=== PATIENT | male | born 1970 | race Caucasian/White ===

== ENCOUNTER 2020-07-16 11:22 | Inpatient (IN) | payer OTHER, MEDICARE ==
[2020-07-16] MEDS ORDERED: NORMAL SALINE 1000 ML 1,000 ML IV ONE ×3 (14:30→16:58)
[2020-07-16] MEDS ORDERED: ONDANSETRON HCL INJ/PF 4 MG/2 ML SDV IV ONE (14:30)
[2020-07-16] MEDS ORDERED: DICYCLOMINE HCL 20 MG TABLET PO ONE (14:30)
--- NOTE | 2020-07-16 14:32 | ER Document Report ---
ED GI/ - General Chief Complaint: Abdominal Problem Stated Complaint: FEVER,CHILLS Time Seen by Provider: 07/16/20 12:18 Mode of Arrival: Ambulatory Information source: Patient Notes: Patient presents complaining of abdominal pain the past week. Patient states the pain is been constant and he has had nausea. Patient reports last bowel movement was yesterday and was normal. Patient has not measured a fever although reports feeling hot and having chills. Patient assumes that he has ngozi d poisoning at this time. - HPI Patient complains to provider of: Abdominal pain, Other - Nausea Onset: Last week Timing/Duration: Worse Quality of pain: Sharp Pain Level: 5 Location: LLQ Associated symptoms: Chills, Loss of appetite, Nausea. denies: Blood in stool, Constipation, Diarrhea, Urinary hesitancy, Urinary frequency, Urinary retention, Urinary urgency, Vomiting Exacerbated by: Movement Relieved by: Denies Similar symptoms previously: No Recently seen / treated by doctor: No - Related Data Allergies/Adverse Reactions: No Known Allergies Allergy (Unverified 07/16/20 12:47) Past Medical History - General Information source: Patient - Social History Smoking Status: Never Smoker Chew tobacco use (# tins/day): No Drug Abuse: None Occupation: None Lives with: Alone Family History: Reviewed & Not Pertinent Patient has homicidal ideation: No GI Medical History: Reports: Other - Achalasia Past Surgical History: Reports: Hx Orthopedic Surgery - Cervical fusion Review of Systems - Review of Systems Constitutional: Chills EENT: No symptoms reported Cardiovascular: No symptoms reported. denies: Chest pain Respiratory: No symptoms reported. denies: Cough, Short of breath Gastrointestinal: Abdominal pain, Nausea, Poor appetite. denies: Diarrhea, Vomiting, Constipation Genitourinary: No symptoms reported. denies: Dysuria, Flank pain Male Genitourinary: No symptoms reported Musculoskeletal: No symptoms reported Skin: No symptoms reported Hematologic/Lymphatic: No symptoms reported Neurological/Psychological: No symptoms reported Physical Exam - Vital signs Vitals: Temp 98.7 F 07/16/20 11:23 - General General appearance: Appears well, Alert In distress: Mild - HEENT Head: Normocephalic, Atraumatic Eyes: Normal Conjunctiva: Normal Nasal: Normal Mouth/Lips: Normal Mucous membranes: Normal Neck: Normal, Supple - Respiratory Respiratory status: No respiratory distress Chest status: Nontender Breath sounds: Normal. No: Rales, Rhonchi, Wheezing Chest palpation: Normal - Cardiovascular Rhythm: Regular Heart sounds: S1 appreciated, S2 appreciated - Abdominal Inspection: Normal Distension: No distension Bowel sounds: Normal Tenderness: Tender - Diffuse tenderness worse to left lower quadrant, Guarding Organomegaly: No organomegaly - Back Back: Normal, Nontender. No: CVA tenderness - Extremities General upper extremity: Normal inspection, Nontender, Normal strength General lower extremity: Normal inspection, Nontender, Normal strength - Neurological Neuro grossly intact: Yes Cognition: Normal [place] Coma Scale Eye Opening: Spontaneous [place] Coma Scale Verbal: Oriented [place] Coma Scale Motor: Obeys Commands [place] Coma Scale Total: 15 - Psychological Associated symptoms: Normal affect, Normal mood - Skin Skin Temperature: Warm Skin Moisture: Dry Skin Color: Normal Course - Re-evaluation Re-evalutation: 07/16/20 15:38 Radiologist called after reviewing patient's imaging, she reports that patient has what appears to be a necrotic mass in his mid abdominal area. 07/16/20 15:57 Call placed for consultation with surgeon, janis bill, states that he will return call shortly. 07/16/20 16:31 Consulted with the surgeon Dr. Jeff regarding patient presentation, he recommends repeating a CT scan to include oral contrast, he states that he will speak with the radiologist and call back with additional instructions. 07/16/20 17:00 Dr. Jeff states that patient needs to have a repeat CT scan with IV and oral contrast. He advises giving patient additional liter of IV fluids as well as maintenance fluid at 150 an hour. Patient should not go to CT scan until it is been 2 hours after he is finished the oral contrast. structures technician SAMPSON advised of Dr. Jeff's instructions. 07/16/20 19:00 Patient updated regarding plan of care, patient denies any needs at this time. - Vital Signs Vital signs: Temp Pulse Resp BP Pulse Ox 98.2 F 88 17 115/71 97 07/17/20 07:08 07/16/20 21:19 07/17/20 05:01 07/17/20 05:00 07/17/20 05:01 - Laboratory Result Diagrams: 07/17/20 05:26 07/17/20 05:26 Laboratory results interpreted by me: 07/16/20 07/16/20 07/16/20 13:00 13:00 13:00 WBC 24.1 H Seg Neuts % (Manual) 84 H Band Neutrophils % 2 L Lymphocytes % (Manual) 3 L Abs Neuts (Manual) 21.0 H Abs Monocytes (Manual) 2.2 H Sodium 135.0 L Chloride 94 L Direct Bilirubin 0.5 H Lipase 21.9 L Urine Protein 30 H Urine Ketones TRACE H Labs- All tests 24 hr 07/16/20 07/16/20 13:00 13:00 WBC 24.1 H RBC 4.74 Hgb 14.8 Hct 42.5 MCV 90 MCH 31.2 MCHC 34.7 RDW 13.0 Plt Count 286 Lymph % (Auto) Not Reportable [place] % (Auto) Not Reportable Eos % (Auto) Not Reportable Baso % (Auto) Not Reportable Absolute Neuts (auto) Not Reportable Absolute Lymphs (auto) Not Reportable Absolute Monos (auto) Not Reportable Absolute Eos (auto) Not Reportable Absolute Basos (auto) Not Reportable Total Counted 100 Seg Neutrophils % Not Reportable Seg Neuts % (Manual) 84 H Band Neutrophils % 2 L Lymphocytes % (Manual) 3 L Atypical Lymphs % 1 Monocytes % (Manual) 9 Eosinophils % (Manual) 0 Basophils % (Manual) 0 Metamyelocytes % 1 Abs Neuts (Manual) 21.0 H Abs Lymphs (Manual) 1.0 Abs Monocytes (Manual) 2.2 H Absolute Eos (Manual) 0.0 Abs Basophils (Manual) 0.0 Toxic Vacuolation PRESENT Platelet Comment ADEQUATE RBC Morph Comment NORMO-CYTIC/CHROMIC Sodium 135.0 L Potassium 3.7 Chloride 94 L Carbon Dioxide 25 Anion Gap 16 BUN 10 Creatinine 1.03 Est GFR ( Amer) > 60 Est GFR (MDRD) Non-Af > 60 Glucose 109 Calcium 9.3 Total Bilirubin 0.9 Direct Bilirubin 0.5 H Neonat Total Bilirubin Not Reportable Neonat Direct Bilirubin Not Reportable Neonat Indirect Bili Not Reportable AST 28 ALT 37 Alkaline Phosphatase 123 Total Protein 7.5 Albumin 4.2 Lipase 21.9 L - Diagnostic Test Radiology reviewed: Image reviewed, Reports reviewed Discharge - Discharge Clinical Impression: Abdominal pain Qualifiers: Abdominal location: lower abdomen, unspecified Qualified Code(s): R10.30 - Lower abdominal pain, unspecified Leukocytosis Qualifiers: Leukocytosis type: unspecified Qualified Code(s): D72.829 - Elevated white blood cell count, unspecified Abdominal mass Qualifiers: Abdominal location: left lower quadrant Qualified Code(s): R19.04 - Left lower quadrant abdominal swelling, mass and lump Condition: Stable Disposition: ADMITTED INPATIENT
[2020-07-16 14:40] LABS: HEMATOCRIT 42.5 % (37.9-51.0); HEMOGLOBIN 14.8 g/dL (13.5-17.0); MEAN CORPUSCULAR HEMOGLOBIN 31.2 pg (27.0-33.4); MEAN CORPUSCULAR HGB CONC 34.7 g/dL (32.0-36.0); MEAN CORPUSCULAR VOLUME 90 fl (80-97); PLATELET COUNT 286 10^3/uL (150-450); RED BLOOD COUNT 4.74 10^6/uL (4.35-5.55); WHITE BLOOD COUNT 24.1 10^3/uL (4.0-10.5)
[2020-07-16 14:48] LABS: ALBUMIN 4.2 g/dL (3.5-5.0); ALKALINE PHOSPHATASE 123 U/L (38-126); ANION GAP 16 (5-19); ASPARTATE AMINO TRANSFERASE 28 U/L (17-59); BILIRUBIN,DIRECT 0.5 mg/dL (0.0-0.4); BILIRUBIN,TOTAL 0.9 mg/dL (0.2-1.3); BLOOD UREA NITROGEN 10 mg/dL (7-20); CALCIUM 9.3 mg/dL (8.4-10.2); CARBON DIOXIDE 25 mmol/L (22-30); CHLORIDE 94 mmol/L (98-107); GLUCOSE 109 mg/dL (75-110); POTASSIUM 3.7 mmol/L (3.6-5.0); TOTAL PROTEIN 7.5 g/dL (6.3-8.2)
[2020-07-16 15:36] LABS: ABSOLUTE MONOCYTES # (MANUAL) 2.2 10^3/uL (0.1-1.4); BAND NEUTROPHILS % (MANUAL) 2 % (3-5); BASOPHILS % (MANUAL) 0 % (0-2); EOSINOPHILS % (MANUAL) 0 % (0-6); LYMPHOCYTES % (MANUAL) 3 % (13-45); METAMYELOCYTES % (MANUAL) 1 % (0-1); MONOCYTES % (MANUAL) 9 % (3-13); SEGMENTED NEUTROPHILS % (MAN) 84 % (42-78); TOTAL CELLS COUNTED 100
[2020-07-16 15:37] LABS: PLATELET COMMENT ADEQUATE; RBC MORPHOLOGY COMMENT NORMO-CYTIC/CHROMIC; TOXIC VACUOLATION PRESENT
[2020-07-16] MEDS ORDERED: PIPERACILLIN/TAZOBACTAM 3.375 GM VIAL IV ONE ×2 (15:39→22:15)
--- NOTE | 2020-07-16 15:48 | RADIOLOGY REPORT (SQ) ---
EXAM DESCRIPTION: CT ABD/PELVIS WITH IV ONLY IMAGES COMPLETED DATE/TIME: 07/16/2020 3:21 pm REASON FOR STUDY: LLQ pain COMPARISON: None. TECHNIQUE: CT scan of the abdomen and pelvis performed using helical scanning technique with dynamic intravenous contrast injection. No oral contrast. Images reviewed with lung, soft tissue, and bone windows. Reconstructed coronal and sagittal MPR images reviewed. Delayed images for evaluation of the urinary system also acquired. All images stored on PACS. All CT scanners at this facility use dose modulation, iterative reconstruction, and/or weight based d osing when appropriate to reduce radiation dose to as low as reasonably achievable (ALARA). [facility]: Dose Right [facility]: CareDose [facility]: Dose Right [facility]: Teradose 4D [facility]: [employer] CONTRAST TYPE AND DOSE: contrast/concentration: Isovue 350.00 mmol/ml; Total Contrast Delivered: 88. 0 ml; Total Saline Delivered: 34.9 ml RENAL FUNCTION: Creatinine- 1.03 BUN=10 RADIATION DOSE: CT Rad equipment meets quality standard of care and radiation dose reduction techniq ues were employed. CTDIvol: NaN - NaN mGy. DLP: 0 mGy-cm.. LIMITATIONS: None. FINDINGS: LOWER CHEST: A large dilated structure in the right posterior mediastinum, lies superior and adjacent to the gastroesophageal junction and adjacent to the right cardiac margin. It contains an [id number]-[id number] level and measures approximately 7- 8.0 cm in diameter. The wall is mildly thick ened. This finding may correlate with the patient's known history of achalasia. LIVER: Normal size. No masses. No dilated ducts. The hepatic and portal veins are patent. SPLEEN: Normal size. No focal lesions. PANCREAS: No masses. No significant calcifications. No adjacent inflammation or peripancreatic fluid collections. Pancreatic duct not dilated. GALLBLADDER: No identified stones by CT criteria. No inflammatory changes to suggest cholecystitis. ADRENAL GLANDS: No significant masses or asymmetry. RIGHT KIDNEY AND URETER: No solid masses. No significant calcifications. No hydronephrosis or hyd roureter. LEFT KIDNEY AND URETER: No solid masses. No significant calcifications. No hydronephrosis or hydr oureter. AORTA AND VESSELS: No aneurysm. No dissection. Renal arteries, SMA, celiac without stenosis. RETROPERITONEUM: No retroperitoneal adenopathy, hemorrhage or masses. BOWEL AND PERITONEAL CAVITY: A large abnormal thick wall appearing fluid collection in the midline t o the left and right lower abdomen with air-fluid levels and small foci of air, coronal images 19-29, series 601. The surrounding mesenteric fat is hazy and ill-defined in appearance may be on the basi s of mesenteric edema/ inflammatory changes. Considerations for this finding includes abscess, with the possibility of a necrotic mass also included in the differential diagnosis. Constipation. Nondistended fluid filled small bowel loops may represent enteritis. APPENDIX: Not visualized. PELVIS: The prostate gland is unremarkable in appearance. Normal bladder. ABDOMINAL WALL: No masses. No hernias. BONES: Slight retrolisthesis of L5 on S1 and degenerative changes. Pectus excavatum deformity of the visualized sternum, normal anatomic variant. OTHER: No other significant finding. IMPRESSION: 1. A large abnormal thick wall appearing fluid collection in the midline to the left an d right lower abdomen as described above which contains air-fluid levels and small foci of air. Cons iderations for this finding includes an abscess, possibility of a necrotic mass, as well as other dangelo ologies. (The results of this examination were discussed with emergency department provider on 020 at 15:38 hours). 2. A large dilated structure in the posterior mediastinum extending to the right of the midline. Th is finding may represent a dilated esophagus correlating with the patient's history of achalasia. 3. Additional findings as above. TECHNICAL DOCUMENTATION: JOB ID: [id number] Quality ID # 436: Final reports with documentation of one or more dose reduction techniques (e.g., Au tomated exposure control, adjustment of the mA and/or kV according to patient size, use of iterative reconstruction technique) 2010 [employer]- All Rights Reserved Reading location - IP/workstation name: [facility]
[2020-07-16] MEDS ORDERED: FENTANYL CITRATE INJ/PF 100 MCG/2 ML AMPUL IV ONE (15:53)
[2020-07-16] MEDS ORDERED: MORPHINE SULFATE 10 MG/ML INJ IV ONE ×3 (17:49→22:48)
--- NOTE | 2020-07-16 21:14 | RADIOLOGY REPORT (SQ) ---
EXAM DESCRIPTION: CT CHEST WITH IV CONTRAST, CT ABDOMEN PELVIS WITH IV CONTRAST COMPLETED DATE/TME: 07/16/2020 00:00 CLINICAL HISTORY: 50 years, Male, CHEST PAIN/EVAL MEDIASTINAL FINDING; left lower quadrant pain COMPARISON: Contrast enhanced CT of the abdomen/pelvis performed the same day. TECHNIQUE: Contrast enhanced CT of the chest, abdomen, and pelvis were acquired after the administration of 80 mL of Omnipaque 350 intravenous contrast. Images stored on PACS. All CT scanners at this facility use dose modulation, iterative reconstruction, and/or weight based dosing when appropriate to reduce radiation dose to as low as reasonably achievable (ALARA). [facility]: Dose Right [facility]: CareDose [facility]: Dose Right [facility]: Teradose 4D [facility]: [employer] LIMITATIONS: None. FINDINGS: Contrast enhanced CT chest: Central airways are patent. Lungs are clear. Mediastinal windows show no significant hilar or mediastinal lymph node enlargement. The esophagus is diffusely dilated and fluid-filled with abrupt transition at the GE junction. Heart shows no suspicious abnormality. Thoracic aorta appears opacify with contrast normally. Pulmonary arterial vasculature shows no suspicious abnormality. Bone windows through the chest reveal no destructive osseous lesions. Contrast enhanced CT of the abdomen/pelvis: Liver, spleen, pancreas, gallbladder, and both adrenal glands appear normal. Both kidneys enhance symmetrically. No hydronephrosis or hydroureter. Hyperdensity is noted about both renal collecting systems, indicating excretion of previously administered intravenous contrast material. The urinary bladder is well distended and shows no suspicious finding. Small and large bowel appear overall normal in caliber. There is a short segment of circumferential wall thickening involving the sigmoid colon. This is likely reactive/has result of immediately adjacent mixed fluid/gas collection located about the lower abdomen. This mixed fluid/gas collection measures 14.5 x 5.3 x 5.8 cm in size, and appears circumferentially thick-walled. Superimposed adjacent inflammatory stranding is also evident. Small bowel is overall normal in caliber. No evidence of bowel obstruction. Vascular structures opacify with contrast normally. No suspicious lymphadenopathy is appreciated. However, there is some degree of inflammatory stranding located about the low pelvis surrounding the large mixed fluid/gas collection. Bone windows show no destructive osseous lesions. IMPRESSION: Contrast enhanced CT of the chest: No acute or suspicious findings within the chest. Dilated/fluid-filled esophagus with abrupt transition at the GE junction, suspicious for achalasia. Contrast enhanced CT of the abdomen/pelvis: Large, thick-walled mixed fluid/gas collection located about the low low abdomen/pelvis. The periphery of this collection approximates the sigmoid colon as well as the cecum. Differential considerations for this finding include a large abscess, possibly as a result of perforated appendicitis or perforated diverticulitis (although no significant diverticula are identified on this examination). Alternatively, this could represent a necrotic mass such as a GIST. However, the presence of adjacent inflammatory stranding favors an infectious process. Superimposed wall thickening about the adjacent sigmoid colon is most likely reactive. TECHNICAL DOCUMENTATION: Quality ID # 436: Final reports with documentation of one or more dose reduction techniques (e.g., Automated exposure control, adjustment of the mA and/or kV according to patient size, use of iterative reconstruction technique) copyright 2011 [employer]- All Rights Reserved
[2020-07-16 21:33] LABS: APPEARANCE,URINE CLEAR; BILIRUBIN,URINE NEGATIVE (NEGATIVE); COLOR,URINE YELLOW; GLUCOSE, URINE NEGATIVE (NEGATIVE); KETONES,URINE TRACE mg/dL (NEGATIVE); LEUKOCYTE ESTERASE,URINE NEGATIVE (NEGATIVE); NITRITE,URINE NEGATIVE (NEGATIVE); PROTEIN,URINE 30 mg/dL (NEGATIVE); URINE SPECIFIC GRAVITY 1.014; UROBILINOGEN,URINE NEGATIVE mg/dL (<2.0)
[2020-07-16] MEDS ORDERED: CEFTRIAXONE INJ 1000 MG VIAL IV ONE (22:00)
--- NOTE | 2020-07-16 22:17 | PDOC H&P ---
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 The symptoms and substance water subsided in the following 2 days to then return more intense in particular the lower abdominal pain and fever. He was able to hold some food and fluids; however the pain is become more intense over the past few days and he presented to the emergency room with above s ymptoms. The patient had stools almost daily, hard without blood or diarrhea. The patient reports a past history of gastrointestinal turns mainly characterized by left-sided cramp-like discomfort. He had a colonoscopy a year ago which was negative. He denies a family history of inflammatory bowel disease or other gastrointestinal conditions. Past Medical History GI Medical History: Reports: Other - Achalasia Past Surgical History Past Surgical History: Reports: Orthopedic Surgery - Cervical fusion Social History Lives with: Alone Smoking Status: Never Smoker Electronic Cigarette use?: No Family History Family History: Reviewed & Not Pertinent Parental Family History Reviewed: Yes - Prostate cancer Children Family History Reviewed: No Sibling(s) Family History Reviewed.: No Medication/Allergy Home Medications: No Home Medications 07/16/20 Allergies/Adverse Reactions: No Known Allergies Allergy (Unverified 07/16/20 12:47) Physical Exam Vital Signs: Temp Pulse Resp BP Pulse Ox 99.0 F 88 16 127/74 H 98 07/16/20 21:19 07/16/20 21:19 07/16/20 21:19 07/16/20 21:19 07/16/20 21:19 Intake & Output 07/15/20 07/16/20 07/17/20 06:59 06:59 06:59 Intake Total 2100 Balance 2100 Weight 77.111 kg General appearance: PRESENT: mild distress, thin Head exam: PRESENT: atraumatic Eye exam: PRESENT: EOMI Mouth exam: PRESENT: moist, neck supple Neck exam: PRESENT: full ROM Respiratory exam: PRESENT: clear to auscultation will Cardiovascular exam: PRESENT: RRR GI/Abdominal exam: PRESENT: distended, hypoactive bowel sounds, tenderness - bilateral lower abdominal pain left more than right with localized peritonitis and grimacing Rectal exam: PRESENT: deferred Extremities exam: PRESENT: full ROM Musculoskeletal exam: PRESENT: full ROM Neurological exam: PRESENT: alert, awake Psychiatric exam: PRESENT: appropriate affect Skin exam: PRESENT: warm Results Laboratory Results: 07/16/20 13:00 07/16/20 13:00 07/16/20 07/16/20 13:00 13:00 WBC 24.1 H RBC 4.74 Hgb 14.8 Hct 42.5 MCV 90 MCH 31.2 MCHC 34.7 RDW 13.0 Plt Count 286 Seg Neutrophils % Not Reportable Sodium 135.0 L Potassium 3.7 Chloride 94 L Carbon Dioxide 25 Anion Gap 16 BUN 10 Creatinine 1.03 Est GFR ( Amer) > 60 Glucose 109 Calcium 9.3 Total Bilirubin 0.9 AST 28 Alkaline Phosphatase 123 Total Protein 7.5 Albumin 4.2 Lipase 21.9 L Impressions: Chest CT 07/16/20 00:00 IMPRESSION: Contrast enhanced CT of the chest: No acute or suspicious findings within the chest. Dilated/fluid-filled esophagus with abrupt transition at the GE junction, suspicious for achalasia. Contrast enhanced CT of the abdomen/pelvis: Large, thick-walled mixed fluid/gas collection located about the low low abdomen/pelvis. The periphery of this collection approximates the sigmoid colon as well as the cecum. Differential considerations for this finding include a large abscess, possibly as a result of perforated appendicitis or perforated diverticulitis (although no significant diverticula are identified on this examination). Alternatively, this could represent a necrotic mass such as a GIST. However, the presence of adjacent inflammatory stranding favors an infectious process. Superimposed wall thickening about the adjacent sigmoid colon is most likely reactive. TECHNICAL DOCUMENTATION: Quality ID # 436: Final reports with documentation of one or more dose reduction techniques (e.g., Automated exposure control, adjustment of the mA and/or kV according to patient size, use of iterative reconstruction technique) copyright 2011 [email or web address]- All Rights Reserved Abdomen/Pelvis CT 07/16/20 14:30 IMPRESSION: 1. A large abnormal thick wall appearing fluid collection in the midline to the left and right lower abdomen as described above which contains air-fluid levels and small foci of air. Considerations for this finding includes an abscess, possibility of a necrotic mass, as well as other etiolog ies. (The results of this examination were discussed with emergency department provider on 07/16/2020 at 15:38 hours). 2. A large dilated structure in the posterior mediastinum extending to the right of the midline. This finding may represent a dilated esophagus correlating with the patient's history of achalasia. 3. Additional findings as above. Assessment & Plan - Diagnosis (1) Abdominal mass Qualifiers: Abdominal location: left lower quadrant Qualified Code(s): R19.04 - Left lower quadrant abdominal swelling, mass and lump Is this a current diagnosis for this admission?: Yes (2) Abdominal pain Qualifiers: Abdominal location: lower abdomen, unspecified Qualified Code(s): R10.30 - Lower abdominal pain, unspecified Is this a current diagnosis for this admission?: Yes (3) Leukocytosis Qualifiers: Leukocytosis type: unspecified Qualified Code(s): D72.829 - Elevated white blood cell count, unspecified Is this a current diagnosis for this admission?: Yes - Time Anticipated Discharge Disposition: when ready Anticipated Discharge Timeframe: not ready yet - Plan Summary Plan Summary: Assessment: 1 week history of lower abdominal pain left more than right proceeded with emesis and high fevers Leukocytosis 24,000 CT scan abdomen pelvis with IV and oral contrast reveals a lobar mid abdominal abscess-like formation of unclear origin; the radiologist cannot intensify sigmoid diverticulosis or the appendix Therefore, the differential diagnosis includes perforated sigmoid diverticulitis versus perforated appendicitis versus necrotic GIST Past medical history significant for bony injuries Colonoscopy done a year ago because of left-sided abdominal pain, negative endings Plan: Admit patient N.p.o. IV fluids Rocephin 2 g every 12 Clindamycin 900 mg q. 8 Consent for bowel resection, laparotomy, possible ostomy tomorrow morning Procedure, risks, benefits, complications, explained to the patient, his questions answered, he decides to proceed COVID-19 test to be done shruthi
[2020-07-16] MEDS ORDERED: NORMAL SALINE 1000 ML 1,000 ML IV PRN (22:55)
[2020-07-16] MEDS ORDERED: ONDANSETRON HCL INJ/PF 4 MG/2 ML SDV IV PRN (22:55)
[2020-07-16] MEDS ORDERED: MORPHINE SULFATE 10 MG/ML INJ IV PRN (22:55)
[2020-07-16] MEDS: FAMOTIDINE INJ/PF 20 MG/2 ML SDV IV SCH ×2 (23:52→23:59)
[2020-07-16] MEDS: CEFTRIAXONE INJ 1000 MG VIAL IM SCH (23:53)
[2020-07-17] MEDS: MORPHINE SULFATE 10 MG/ML INJ IV PRN ×6 (01:41→22:14)
[2020-07-17 05:56] LABS: HEMATOCRIT 36.1 % (37.9-51.0); MEAN CORPUSCULAR HEMOGLOBIN 30.8 pg (27.0-33.4); MEAN CORPUSCULAR HGB CONC 34.4 g/dL (32.0-36.0); MEAN CORPUSCULAR VOLUME 90 fl (80-97); PLATELET COUNT 260 10^3/uL (150-450); RED BLOOD COUNT 4.03 10^6/uL (4.35-5.55); RED CELL DISTRIBUTION WIDTH 13.4 % (11.5-14.0); WHITE BLOOD COUNT 22.9 10^3/uL (4.0-10.5)
[2020-07-17] MEDS ORDERED: ACETAMINOPHEN 1,000 MG/100 ML RTUPB IV ONE ×2 (06:00→11:26)
[2020-07-17 06:08] LABS: ANION GAP 12 (5-19); BLOOD UREA NITROGEN 9 mg/dL (7-20); CARBON DIOXIDE 18 mmol/L (22-30); CHLORIDE 104 mmol/L (98-107); GLUCOSE 105 mg/dL (75-110)
[2020-07-17 06:19] LABS: HEMOGLOBIN 12.4 g/dL (13.5-17.0)
[2020-07-17] MEDS: CLINDAMYCIN 900 MG/D5W RTU 900 MG/50 ML RTUPB IV SCH ×4 (06:21→22:15)
[2020-07-17 06:24] LABS: ABSOLUTE LYMPHOCYTES# (MANUAL) 1.4 10^3/uL (0.5-4.7); ABSOLUTE MONOCYTES # (MANUAL) 2.1 10^3/uL (0.1-1.4); BAND NEUTROPHILS % (MANUAL) 4 % (3-5); BASOPHILS % (MANUAL) 0 % (0-2); EOSINOPHILS % (MANUAL) 0 % (0-6); LYMPHOCYTES % (MANUAL) 6 % (13-45); MONOCYTES % (MANUAL) 9 % (3-13); PLATELET COMMENT ADEQUATE; SEGMENTED NEUTROPHILS % (MAN) 81 % (42-78); TOTAL CELLS COUNTED 100
[2020-07-17 06:25] LABS: RBC MORPHOLOGY COMMENT NORMO-CYTIC/CHROMIC
[2020-07-17] MEDS ORDERED: MORPHINE SULFATE 10 MG/ML INJ ONE (07:29)
[2020-07-17] MEDS ORDERED: FENTANYL CITRATE INJ/PF 250 MCG/5 ML AMPULE ONE (07:29)
[2020-07-17] MEDS ORDERED: PROPOFOL INJ 200 MG/20 ML VIAL IV ONE (07:29)
[2020-07-17] MEDS ORDERED: MIDAZOLAM 2 MG/2 ML INJ ONE (07:29)
[2020-07-17] MEDS ORDERED: BUPIVACAINE HCL 0.5%-EPI 1:200000 INJ/PF 30 ML VIAL ONE ×2 (07:35→08:16)
[2020-07-17] MEDS ORDERED: FENTANYL CITRATE INJ/PF 100 MCG/2 ML AMPUL ONE (09:01)
[2020-07-17] MEDS ORDERED: DIPHENHYDRAMINE HCL 50 MG/ML VIAL IV PRN (09:53)
[2020-07-17] MEDS ORDERED: FENTANYL CITRATE INJ/PF 100 MCG/2 ML AMPUL IV PRN (09:53)
[2020-07-17] MEDS ORDERED: MORPHINE SULFATE 10 MG/ML INJ IV PRN (09:53)
[2020-07-17] MEDS ORDERED: MEPERIDINE HCL/PF INJ 25 MG/1 ML DISP.SYRIN IV PRN (09:53)
--- NOTE | 2020-07-17 10:25 | Operative Report ---
Operative Report DATE OF SURGERY: 07/17/20 PREOPERATIVE DIAGNOSIS: Intra-abdominal abscess, leukocytosis POSTOPERATIVE DIAGNOSIS: Intra-abdominal abscess, leukocytosis, gangrenous perforated acute appendicitis OPERATION: Exploratory laparotomy, ileocecectomy SURGEON: REFUGIO GONZALEZ 1ST [employer] ATTENDANT: URBAN ARROYO ANESTHESIA: GA - Last 60 mL's of half percent Marcaine with epinephrine TISSUE REMOVED OR ALTERED: Ileocecectomy specimen with gangrenous ruptured appendix COMPLICATIONS: None ESTIMATED BLOOD LOSS: 50 mL's INTRAOPERATIVE FINDINGS: Large midline interloop abscess with ruptured gangrenous acute appendicitis PROCEDURE: Procedure was done in the operating room, the patient was placed in a supine position, general esthesia induced by endotracheal intubation by the anesthesiologist, nasogastric tube was inserted, a Dozier catheter was inserted, the abdomen was prepped and draped in usual fashion. A midline incision was made according to the presurgical markings, the linea alba was divided with Bovie the peritoneal cavity was entered. The small bowel was eviscerated and ran from the ligament of Treitz down to to the ileocecal valve and backward. Several small bowel loops belonging to the jejunum and ileum as well as the sigmoid colon were found to be plastered together. As these loops of bowel where by finger, large amount of foul-smelling pus was obtained this was sent for aerobic anaerobic culture and Gram stain fully aspirated and removed from the peritoneal cavity.. Further examination of the abdomen revealed an inflamed gangrenous, ruptured acute appendicitis, the appendix was laying on top of the retroperitoneum along the midline covered by loops of small bowel and sigmoid colon. The remaining portion of the abdominal cavity was evaluated. The colon was then identified starting from the cecum and was done in a proximal to distal fashion with identification of all segments, right colon, transverse colon, left colon, sigmoid colon, and proximal rectum. No other lesions or pathologies were identified. Due to the necrosis of the appendix down to its base and involvement of portion of the cecal wall, a decision was made to perform an ileocecectomy. Following the laparotomy, the cecum and right colon were elevated off the retroperitoneum with Bovie and LigaSure up to the liver flexure. Dissection was then continued more proximally to the cecum and this was fully elevated from the retroperitoneum. Similarly, the terminal ileum was elevated from the retroperitoneum by dividing the mesentery with LigaSure. Once this was accomplished, bowel clamps were applied on the terminal ileum about 15 cm pr oximal to the ileocecal valve and on the right colon, 10 cm distal to the cecum. The terminal ileum and the cecum were divided with CHARISSE staplers with blue load, the mesentery of the small bowel and cecum was then divided with LigaSure and the specimen was removed from the surgical field and sent to pathology. The proximal and distal ends of the bowel were placed [id number] and kept in position with interrupted 2-0 silk Lembert sutures placed on the antimesenteric border. The antimesenteric corner of the staple line of each end was opened with Bovie, a 55 mm long CHARISSE stapler with blue load was inserted and fired to create an enterocolostomy, the stapler was opened and removed. The anastomosis was found to be intact. The large enterotomy was temporarily closed with Allis clamps and then with a 60 mm TA stapler with blue load. The TA staple line was reinforced with interrupted Lembert 2-0 silk sutures. The mesenteric defect of the ileocecectomy was closed with running locking 2-0 silk suture. The bowel was replaced within the peritoneal cavity, the anastomosis was inspected and found to be satisfactory, the peritoneal cavity was irrigated with normal saline until clear,approximately 6 L, the linea alba was closed with running #1 looped PDS suture while the bowel was spared with a rubber bowel protector. The skin was loosely approximated with a few perry. The open skin edges and subcutaneous tissue were packed with 50% strength Betadine soaked 4 x 4's, ABDs, tape, and an abdominal binder. The patient tolerated procedure well, extubated, and transferred to the recovery room in satisfactory conditions.
[2020-07-17] MEDS ORDERED: PHARMACY COMMUNICATION ORDER MC NR (10:30)
[2020-07-17] MEDS ORDERED: KETOROLAC TROMETHAMINE INJ/PF 30 MG/1 ML SDV IV SCH (10:30)
[2020-07-17] MEDS ORDERED: ONDANSETRON HCL INJ/PF 4 MG/2 ML SDV ONE ×2 (10:46→14:31)
[2020-07-17] MEDS: FENTANYL CITRATE INJ/PF 100 MCG/2 ML AMPUL ONE ×2 (10:47→10:52)
[2020-07-17] MEDS ORDERED: PROMETHAZINE HCL INJ 25 MG/1 ML VIAL ONE (11:07)
[2020-07-17] MEDS: PROMETHAZINE HCL INJ 25 MG/1 ML VIAL IV PRN ×3 (11:08→11:20)
[2020-07-17] MEDS ORDERED: CEFTRIAXONE 2 GM/D5W RTU 2 GM/50 ML RTUPB IV SCH (13:00)
[2020-07-17] MEDS ORDERED: DEXAMETHASONE SOD PHOSPHATE INJ 4 MG/1 ML VIAL ONE (14:31)
[2020-07-17] MEDS ORDERED: SUCCINYLCHOLINE CHLORIDE INJ 200 MG/10 ML VIAL ONE (14:31)
[2020-07-17] MEDS ORDERED: NEOSTIGMINE METHYLSULFATE 10 MG/10 ML VIAL ONE (14:31)
[2020-07-17] MEDS ORDERED: ROCURONIUM BROMIDE INJ 50 MG/5 ML VIAL IV ONE (14:31)
[2020-07-17] MEDS ORDERED: PHENYLEPHRINE HCL INJ/PF 10 MG/1 ML SDV ONE (14:31)
[2020-07-17] MEDS ORDERED: LIDOCAINE 2% INJ-PF (20 MG/ML) 2 ML AMPUL ONE (14:31)
[2020-07-17] MEDS ORDERED: GLYCOPYRROLATE 1 MG/5 ML VIAL ONE (14:31)
[2020-07-17] MEDS: CEFTRIAXONE 2 GM/D5W RTU 2 GM/50 ML RTUPB IV SCH ×2 (15:46→21:35)
[2020-07-17] MEDS: NORMAL SALINE 1000 ML 1,000 ML IV PRN (20:05)
[2020-07-17] MEDS: ACETAMINOPHEN 1,000 MG/100 ML RTUPB IV SCH (20:06)
[2020-07-17] MEDS: FAMOTIDINE INJ/PF 20 MG/2 ML SDV IV SCH ×2 (21:26→21:35)
[2020-07-17] MEDS: CEFTRIAXONE INJ 1000 MG VIAL IM SCH (21:27)
[2020-07-18] MEDS: MORPHINE SULFATE 10 MG/ML INJ IV PRN ×4 (00:16→16:28)
[2020-07-18] MEDS: ACETAMINOPHEN 1,000 MG/100 ML RTUPB IV SCH ×4 (02:00→21:05)
[2020-07-18] MEDS: CLINDAMYCIN 900 MG/D5W RTU 900 MG/50 ML RTUPB IV SCH ×3 (05:14→21:12)
[2020-07-18] MEDS ORDERED: KETOROLAC TROMETHAMINE INJ/PF 30 MG/1 ML SDV IV PRN (05:30)
[2020-07-18 06:09] LABS: ABSOLUTE BASOPHILS # (AUTO) 0.1 10^3/uL (0.0-0.2); ABSOLUTE LYMPHOCYTES (AUTO) 1.1 10^3/uL (0.5-4.7); ABSOLUTE MONOCYTES (AUTO) 1.3 10^3/uL (0.1-1.4); ABSOLUTE NEUT (AUTO) 17.4 10^3/uL (1.7-8.2); BASOPHILS % (AUTO) 0.4 % (0-2); EOSINOPHILS % (AUTO) 0.1 % (0-6); HEMATOCRIT 36.5 % (37.9-51.0); HEMOGLOBIN 12.4 g/dL (13.5-17.0); LYMPHOCYTES % (AUTO) 5.5 % (13-45); MEAN CORPUSCULAR HEMOGLOBIN 30.6 pg (27.0-33.4); MEAN CORPUSCULAR VOLUME 90 fl (80-97); MONOCYTES % (AUTO) 6.6 % (3-13); PLATELET COUNT 306 10^3/uL (150-450); RED BLOOD COUNT 4.06 10^6/uL (4.35-5.55); RED CELL DISTRIBUTION WIDTH 13.4 % (11.5-14.0); SEGMENTED NEUTROPHILS % (AUTO) 87.4 % (42-78); TOTAL CELLS COUNTED % (AUTO) 100 %; WHITE BLOOD COUNT 19.9 10^3/uL (4.0-10.5)
[2020-07-18 06:18] LABS: ANION GAP 8 (5-19); BLOOD UREA NITROGEN 8 mg/dL (7-20); CALCIUM 8.1 mg/dL (8.4-10.2); CARBON DIOXIDE 24 mmol/L (22-30); CHLORIDE 103 mmol/L (98-107); GLUCOSE 108 mg/dL (75-110); POTASSIUM 4.2 mmol/L (3.6-5.0)
[2020-07-18] MEDS: CEFTRIAXONE 2 GM/D5W RTU 2 GM/50 ML RTUPB IV SCH ×2 (09:34→21:12)
[2020-07-18] MEDS: ENOXAPARIN SODIUM INJ 40 MG/0.4 ML DISP.SYRIN SUBCUT SCH ×2 (09:36→13:13)
[2020-07-18] MEDS: FAMOTIDINE INJ/PF 20 MG/2 ML SDV IV SCH ×2 (10:00→21:05)
[2020-07-18] MEDS: KETOROLAC TROMETHAMINE INJ/PF 30 MG/1 ML SDV IV PRN ×3 (10:20→22:39)
--- NOTE | 2020-07-18 17:24 | PDOC PROGRESS REPORT ---
Subjective Progress Note for:: 07/18/20 Reason For Visit: INTRA ABDOMINAL ABSCESS, LEUKOCYTOSIS Physical Exam Vital Signs: Temp Pulse Resp BP Pulse Ox 97.9 F 69 16 108/50 L 97 07/18/20 15:11 07/18/20 15:11 07/18/20 15:11 07/18/20 15:11 07/18/20 16:00 Pulse Oximeter Continuous Start: 07/16/20 23:23 Freq: RTQ4 Status: Active Protocol: Document 07/18/20 16:00 [facility] (Rec: 07/18/20 16:24 [facility] [id number]) Pulse Oximetry Assessment Oxygen Saturation (92-100) 97 Oxygen Delivery Method Room Air Fraction of Inspired Oxygen (FIO2) 21 Equipment Usage Equipment in Use Continuous SpO2 Machine # 5 Intake & Output 07/17/20 07/18/20 07/19/20 06:59 06:59 06:59 Intake Total 3350 15309 150 Output Total 2009 Balance 3350 8390 150 Weight 77.111 kg 77.1 kg Results Laboratory Results: 07/18/20 05:06 07/18/20 05:06 07/18/20 07/18/20 05:06 05:06 WBC 19.9 H RBC 4.06 L Hgb 12.4 L Hct 36.5 L MCV 90 MCH 30.6 MCHC 34.0 RDW 13.4 Plt Count 306 Seg Neutrophils % 87.4 H Sodium 134.8 L Potassium 4.2 Chloride 103 Carbon Dioxide 24 Anion Gap 8 BUN 8 Creatinine 0.82 Est GFR ( Amer) > 60 Glucose 108 Calcium 8.1 L 07/17/20 08:37 Peritoneal Gram Stain - Final 07/17/20 08:37 Peritoneal Gram Stain - Final Impressions: Chest CT 07/16/20 00:00 IMPRESSION: Contrast enhanced CT of the chest: No acute or suspicious findings within the chest. Dilated/fluid-filled esophagus with abrupt transition at the GE junction, suspicious for achalasia. Contrast enhanced CT of the abdomen/pelvis: Large, thick-walled mixed fluid/gas collection located about the low low abdomen/pelvis. The periphery of this collection approximates the sigmoid colon as well as the cecum. Differential considerations for this finding include a large abscess, possibly as a result of perforated appendicitis or perforated diverticulitis (although no significant diverticula are identified on this examination). Alternatively, this could represent a necrotic mass such as a GIST. However, the presence of adjacent inflammatory stranding favors an infectious process. Superimposed wall thickening about the adjacent sigmoid colon is most likely reactive. TECHNICAL DOCUMENTATION: Quality ID # [id number]: Final reports with documentation of one or more dose reduction techniques (e.g., Automated exposure control, adjustment of the mA and/or kV according to patient size, use of iterative reconstruction technique) copyright 2011 [employer]- All Rights Reserved Abdomen/Pelvis CT 07/16/20 14:30 IMPRESSION: 1. A large abnormal thick wall appearing fluid collection in the midline to the left and right lower abdomen as described above which contains air-fluid levels and small foci of air. Considerations for this finding includes an abscess, possibility of a necrotic mass, as well as other etiologies. (The results of this examination were discussed with emergency department provider on 07/16/2020 at 15:38 hours). 2. A large dilated structure in the posterior mediastinum extending to the right of the midline. This finding may represent a dilated esophagus correlating with the patient's history of achalasia. 3. Additional findings as above. Assessment & Plan - Time Anticipated Discharge Disposition: Unknown Anticipated Discharge Timeframe: unknown - Plan Summary Plan Summary: 50-year-old male status post laparotomy with ileocecectomy for perforated appendicitis with abscess. The patient is doing reasonably well today. He denies any flatus. I have changed his midline abdominal wound. It appears clean, without signs of infection. His DONNA drains are productive of serosanguineous fluid. I encouraged the patient to get out of bed and ambulate. He should also use his incentive spirometer 10 times every hour, while awake. Awaiting bowel function. Plan to remove NG and advance diet once he begins pas sing flatus. Discontinue Dozier today.
[2020-07-18] MEDS: NORMAL SALINE 1000 ML 1,000 ML IV PRN (21:11)
[2020-07-19] MEDS: ACETAMINOPHEN 1,000 MG/100 ML RTUPB IV SCH ×4 (02:29→21:35)
[2020-07-19] MEDS: MORPHINE SULFATE 10 MG/ML INJ IV PRN ×4 (02:30→21:38)
[2020-07-19] MEDS: CLINDAMYCIN 900 MG/D5W RTU 900 MG/50 ML RTUPB IV SCH ×3 (05:44→22:50)
[2020-07-19] MEDS: NORMAL SALINE 1000 ML 1,000 ML IV PRN ×2 (05:44→17:40)
[2020-07-19 07:19] LABS: ABSOLUTE BASOPHILS # (AUTO) 0.1 10^3/uL (0.0-0.2); ABSOLUTE EOSINOPHILS # (AUTO) 0.1 10^3/uL (0.0-0.6); ABSOLUTE LYMPHOCYTES (AUTO) 1.1 10^3/uL (0.5-4.7); ABSOLUTE NEUT (AUTO) 15.2 10^3/uL (1.7-8.2); BASOPHILS % (AUTO) 0.5 % (0-2); EOSINOPHILS % (AUTO) 0.6 % (0-6); HEMATOCRIT 33.3 % (37.9-51.0); HEMOGLOBIN 11.1 g/dL (13.5-17.0); LYMPHOCYTES % (AUTO) 6.2 % (13-45); MEAN CORPUSCULAR HEMOGLOBIN 30.3 pg (27.0-33.4); MEAN CORPUSCULAR HGB CONC 33.4 g/dL (32.0-36.0); MEAN CORPUSCULAR VOLUME 91 fl (80-97); MONOCYTES % (AUTO) 5.9 % (3-13); PLATELET COUNT 298 10^3/uL (150-450); RED BLOOD COUNT 3.67 10^6/uL (4.35-5.55); RED CELL DISTRIBUTION WIDTH 14.2 % (11.5-14.0); SEGMENTED NEUTROPHILS % (AUTO) 86.8 % (42-78); TOTAL CELLS COUNTED % (AUTO) 100 %; WHITE BLOOD COUNT 17.5 10^3/uL (4.0-10.5)
[2020-07-19 07:27] LABS: ANION GAP 8 (5-19); BLOOD UREA NITROGEN 10 mg/dL (7-20); CALCIUM 7.8 mg/dL (8.4-10.2); CARBON DIOXIDE 25 mmol/L (22-30); CHLORIDE 105 mmol/L (98-107); GLUCOSE 90 mg/dL (75-110); POTASSIUM 4.2 mmol/L (3.6-5.0)
[2020-07-19] MEDS: ENOXAPARIN SODIUM INJ 40 MG/0.4 ML DISP.SYRIN SUBCUT SCH (09:45)
[2020-07-19] MEDS: FAMOTIDINE INJ/PF 20 MG/2 ML SDV IV SCH ×2 (09:46→21:39)
--- NOTE | 2020-07-19 10:04 | PDOC PROGRESS REPORT ---
Subjective Progress Note for:: 07/19/20 Subjective:: No complaints Reason For Visit: INTRA ABDOMINAL ABSCESS, LEUKOCYTOSIS Physical Exam Vital Signs: Temp Pulse Resp BP Pulse Ox 98.3 F 72 16 118/79 100 07/19/20 07:15 07/19/20 07:15 07/19/20 07:15 07/19/20 07:15 07/19/20 07:15 Pulse Oximeter Continuous Start: 07/16/20 23:23 Freq: RTQ4 Status: Complete Protocol: Document 07/19/20 04:03 [facility] (Rec: 07/19/20 04:04 [facility] [id number]) Pulse Oximetry Assessment Oxygen Saturation (92-100) 99 Oxygen Delivery Method Room Air Fraction of Inspired Oxygen (FIO2) 21 Equipment Usage Equipment in Use Continuous SpO2 Machine # 5 Intake & Output 07/18/20 07/19/20 07/20/20 06:59 06:59 06:59 Intake Total 24850 2600 50 Output Total 2009 Balance 8390 2575 50 Weight 77.1 kg 77.2 kg General appearance: PRESENT: no acute distress Respiratory exam: PRESENT: clear to auscultation will Cardiovascular exam: PRESENT: RRR GI/Abdominal exam: PRESENT: soft, other - Incision granulating, clean, no drainage, no odor, no erythema; no bowel sounds Results Laboratory Results: 07/19/20 05:39 07/19/20 05:39 07/19/20 07/19/20 05:39 05:39 WBC 17.5 H RBC 3.67 L Hgb 11.1 L Hct 33.3 L MCV 91 MCH 30.3 MCHC 33.4 RDW 14.2 H Plt Count 298 Seg Neutrophils % 86.8 H Sodium 137.5 Potassium 4.2 Chloride 105 Carbon Dioxide 25 Anion Gap 8 BUN 10 Creatinine 0.86 Est GFR ( Amer) > 60 Glucose 90 Calcium 7.8 L 07/17/20 08:37 Peritoneal Gram Stain - Final 07/17/20 08:37 Peritoneal Wound Culture - Final Escherichia Coli Group C Beta Streptococcus Anaerococcus (Peptostrep) Sp. 07/17/20 08:37 Peritoneal Gram Stain - Final 07/17/20 08:37 Peritoneal Wound Culture - Final Escherichia Coli Group C Beta Streptococcus Anaerococcus (Peptostrep) Sp. Impressions: Chest CT 07/16/20 00:00 IMPRESSION: Contrast enhanced CT of the chest: No acute or suspicious findings within the chest. Dilated/fluid-filled esophagus with abrupt transition at the GE junction, suspicious for achalasia. Contrast enhanced CT of the abdomen/pelvis: Large, thick-walled mixed fluid/gas collection located about the low low abdomen/pelvis. The periphery of this collection approximates the sigmoid colon as well as the cecum. Differential considerations for this finding include a large abscess, possibly as a result of perforated appendicitis or perforated diverticulitis (although no significant diverticula are identified on this examination). Alternatively, this could represent a necrotic mass such as a GIST. However, the presence of adjacent inflammatory stranding favors an infectious process. Superimposed wall thickening about the adjacent sigmoid colon is most likely reactive. TECHNICAL DOCUMENTATION: Quality ID # [id number]: Final reports with documentation of one or more dose reduction techniques (e.g., Automated exposure control, adjustment of the mA and/or kV according to patient size, use of iterative reconstruction technique) copyright 2011 [employer]- All Rights Reserved Abdomen/Pelvis CT 07/16/20 14:30 IMPRESSION: 1. A large abnormal thick wall appearing fluid collection in the midline to the left and right lower abdomen as described above which contains air-fluid levels and small foci of air. Considerations for this finding includes an abscess, possibility of a necrotic mass, as well as other etiologies. (The results of this examination were discussed with emergency department provider on 07/16/2020 at 15:38 hours). 2. A large dilated structure in the posterior mediastinum extending to the right of the midline. This finding may represent a dilated esophagus correlating with the patient's history of achalasia. 3. Additional findings as above. Assessment & Plan - Diagnosis (1) Abdominal mass Qualifiers: Abdominal location: left lower quadrant Qualified Code(s): R19.04 - Left lower quadrant abdominal swelling, mass and lump Is this a current diagnosis for this admission?: Yes (2) Abdominal pain Qualifiers: Abdominal location: lower abdomen, unspecified Qualified Code(s): R10.30 - Lower abdominal pain, unspecified Is this a current diagnosis for this admission?: Yes (3) Leukocytosis Qualifiers: Leukocytosis type: unspecified Qualified Code(s): D72.829 - Elevated white blood cell count, unspecified Is this a current diagnosis for this admission?: Yes - Time Anticipated Discharge Disposition: Home, Self Care Anticipated Discharge Timeframe: Bowel function returns - Plan Summary Plan Summary: Assessment: Postoperative day #2 after laparotomy, ileocecectomy, for perforated gangrenous appendicitis with interloop abscess Vital signs stable Urine output Minimal Nikolas intra-abdominal drain output White blood cell count 17,000, decreasing since admission Incision granulating, no erythema, abdomen soft Plan: Continue p.o. Continue NG tube Continue IV fluids Continue IV antibiotics Once the patient presents with flatus, thoracic acid tube can be removed and his diet can be advanced Abdominal wound to undergo normal saline wet-to-dry dressing changes every 12 hours
[2020-07-19] MEDS: CEFTRIAXONE 2 GM/D5W RTU 2 GM/50 ML RTUPB IV SCH ×2 (10:10→22:14)
[2020-07-19] MEDS: KETOROLAC TROMETHAMINE INJ/PF 30 MG/1 ML SDV IV PRN ×2 (12:50→18:52)
[2020-07-20] MEDS: MORPHINE SULFATE 10 MG/ML INJ IV PRN ×2 (02:49→10:22)
[2020-07-20] MEDS: ACETAMINOPHEN 1,000 MG/100 ML RTUPB IV SCH ×3 (02:50→16:06)
[2020-07-20] MEDS: NORMAL SALINE 1000 ML 1,000 ML IV PRN (06:21)
[2020-07-20] MEDS: CLINDAMYCIN 900 MG/D5W RTU 900 MG/50 ML RTUPB IV SCH ×3 (06:21→22:09)
[2020-07-20] MEDS: KETOROLAC TROMETHAMINE INJ/PF 30 MG/1 ML SDV IV PRN ×3 (06:21→22:09)
[2020-07-20 06:58] LABS: ABSOLUTE BASOPHILS # (AUTO) 0.1 10^3/uL (0.0-0.2); ABSOLUTE EOSINOPHILS # (AUTO) 0.3 10^3/uL (0.0-0.6); ABSOLUTE MONOCYTES (AUTO) 0.8 10^3/uL (0.1-1.4); ABSOLUTE NEUT (AUTO) 12.3 10^3/uL (1.7-8.2); BASOPHILS % (AUTO) 0.8 % (0-2); EOSINOPHILS % (AUTO) 1.8 % (0-6); HEMOGLOBIN 11.7 g/dL (13.5-17.0); LYMPHOCYTES % (AUTO) 7.2 % (13-45); MEAN CORPUSCULAR HEMOGLOBIN 30.8 pg (27.0-33.4); MEAN CORPUSCULAR HGB CONC 34.3 g/dL (32.0-36.0); MEAN CORPUSCULAR VOLUME 90 fl (80-97); MONOCYTES % (AUTO) 5.3 % (3-13); PLATELET COUNT 372 10^3/uL (150-450); RED BLOOD COUNT 3.79 10^6/uL (4.35-5.55); RED CELL DISTRIBUTION WIDTH 13.8 % (11.5-14.0); SEGMENTED NEUTROPHILS % (AUTO) 84.9 % (42-78); TOTAL CELLS COUNTED % (AUTO) 100 %; WHITE BLOOD COUNT 14.5 10^3/uL (4.0-10.5)
[2020-07-20 07:25] LABS: ANION GAP 12 (5-19); BLOOD UREA NITROGEN 9 mg/dL (7-20); CALCIUM 7.9 mg/dL (8.4-10.2); CARBON DIOXIDE 19 mmol/L (22-30); CHLORIDE 107 mmol/L (98-107); GLUCOSE 90 mg/dL (75-110)
[2020-07-20] MEDS: CEFTRIAXONE 2 GM/D5W RTU 2 GM/50 ML RTUPB IV SCH ×2 (10:18→21:35)
[2020-07-20] MEDS: FAMOTIDINE INJ/PF 20 MG/2 ML SDV IV SCH ×2 (10:18→21:33)
[2020-07-20] MEDS: ENOXAPARIN SODIUM INJ 40 MG/0.4 ML DISP.SYRIN SUBCUT SCH (10:18)
--- NOTE | 2020-07-20 12:26 | PDOC PROGRESS REPORT ---
Subjective Progress Note for:: 07/20/20 Subjective:: Patient doing well no flatus Reason For Visit: INTRA ABDOMINAL ABSCESS, LEUKOCYTOSIS Physical Exam Vital Signs: Temp Pulse Resp BP Pulse Ox 98.1 F 67 12 108/66 96 07/20/20 11:27 07/20/20 11:27 07/20/20 11:27 07/20/20 11:27 07/20/20 11:27 Pulse Oximeter Continuous Start: 07/16/20 23:23 Freq: RTQ4 Status: Complete Protocol: Document 07/19/20 10:45 [facility] [place] (Rec: 07/19/20 10:45 [facility] [place] [id number]) Pulse Oximetry Assessment Equipment Usage Equipment Discontinued Continuous SpO2 Machine # 5 Intake & Output 07/19/20 07/20/20 07/21/20 06:59 06:59 06:59 Intake Total 2600 2650 200 Output Total 25 7 Balance 2575 2643 200 Weight 77.2 kg 77.2 kg General appearance: PRESENT: no acute distress Respiratory exam: PRESENT: clear to auscultation will Cardiovascular exam: PRESENT: RRR GI/Abdominal exam: PRESENT: hypoactive bowel sounds, soft, other - Midline incision = partially open, granulating, fascia intact, no drainage, odor, or erythema Results Laboratory Results: 07/20/20 06:40 07/20/20 06:40 07/20/20 07/20/20 06:40 06:40 WBC 14.5 H RBC 3.79 L Hgb 11.7 L Hct 34.0 L MCV 90 MCH 30.8 MCHC 34.3 RDW 13.8 Plt Count 372 Seg Neutrophils % 84.9 H Sodium 137.6 Potassium 4.0 Chloride 107 Carbon Dioxide 19 L Anion Gap 12 BUN 9 Creatinine 0.71 Est GFR ( Amer) > 60 Glucose 90 Calcium 7.9 L Impressions: Chest CT 07/16/20 00:00 IMPRESSION: Contrast enhanced CT of the chest: No acute or suspicious findings within the chest. Dilated/fluid-filled esophagus with abrupt transition at the GE junction, suspicious for achalasia. Contrast enhanced CT of the abdomen/pelvis: Large, thick-walled mixed fluid/gas collection located about the low low abdomen/pelvis. The periphery of this collection approximates the sigmoid colon as well as the cecum. Differential considerations for this finding include a large abscess, possibly as a result of perforated appendicitis or perforated diverticulitis (although no significant diverticula are identified on this examination). Alternatively, this could represent a necrotic mass such as a GIST. However, the presence of adjacent inflammatory stranding favors an infectious process. Superimposed wall thickening about the adjacent sigmoid colon is most likely reactive. TECHNICAL DOCUMENTATION: Quality ID # [id number]: Final reports with documentation of one or more dose reduction techniques (e.g., Automated exposure control, adjustment of the mA and/or kV according to patient size, use of iterative reconstruction technique) copyright 2011 [employer]- All Rights Reserved Abdomen/Pelvis CT 07/16/20 14:30 IMPRESSION: 1. A large abnormal thick wall appearing fluid collection in the midline to the left and right lower abdomen as described above which contains air-fluid levels and small foci of air. Considerations for this finding includes an abscess, possibility of a necrotic mass, as well as other etiologies. (The results of this examination were discussed with emergency department provider on 07/16/2020 at 15:38 hours). 2. A large dilated structure in the posterior mediastinum extending to the right of the midline. This finding may represent a dilated esophagus correlating with the patient's history of achalasia. 3. Additional findings as above. Assessment & Plan - Diagnosis (1) Acute gangrenous appendicitis with perforation and peritonitis Is this a current diagnosis for this admission?: Yes (2) Abdominal pain Qualifiers: Abdominal location: lower abdomen, unspecified Qualified Code(s): R10.30 - Lower abdominal pain, unspecified Is this a current diagnosis for this admission?: Yes (3) Leukocytosis Qualifiers: Leukocytosis type: unspecified Qualified Code(s): D72.829 - Elevated white blood cell count, unspecified Is this a current diagnosis for this admission?: Yes - Time Anticipated Discharge Disposition: Home, Self Care Anticipated Discharge Timeframe: When bowel function returns - Plan Summary Plan Summary: Assessment: Postoperative day #4 after laparotomy ileocecectomy drainage of intra-abdominal abscess for perforated gangrenous appendicitis Vital signs stable, patient afebrile Abdomen soft, abdominal incision granulating well healing Nikolas drain output scant Nasogastric tube output scant White blood cell count 14.5 Plan: Clamp NG tube, if tolerated after 4 hours remove NG tube and start ice chips Continue IV fluids 125 mL/h Continue IV antibiotics Discontinue narcotics
[2020-07-21] MEDS: NORMAL SALINE 1000 ML 1,000 ML IV PRN ×3 (01:01→20:21)
[2020-07-21] MEDS: KETOROLAC TROMETHAMINE INJ/PF 30 MG/1 ML SDV IV PRN ×4 (04:21→23:05)
[2020-07-21] MEDS: CLINDAMYCIN 900 MG/D5W RTU 900 MG/50 ML RTUPB IV SCH ×3 (05:46→21:59)
[2020-07-21 06:30] LABS: ABSOLUTE BASOPHILS # (AUTO) 0.1 10^3/uL (0.0-0.2); ABSOLUTE EOSINOPHILS # (AUTO) 0.2 10^3/uL (0.0-0.6); ABSOLUTE MONOCYTES (AUTO) 0.8 10^3/uL (0.1-1.4); ABSOLUTE NEUT (AUTO) 11.5 10^3/uL (1.7-8.2); BASOPHILS % (AUTO) 0.5 % (0-2); EOSINOPHILS % (AUTO) 1.3 % (0-6); HEMATOCRIT 36.9 % (37.9-51.0); HEMOGLOBIN 12.5 g/dL (13.5-17.0); LYMPHOCYTES % (AUTO) 7.5 % (13-45); MEAN CORPUSCULAR HEMOGLOBIN 30.4 pg (27.0-33.4); MEAN CORPUSCULAR HGB CONC 33.8 g/dL (32.0-36.0); MEAN CORPUSCULAR VOLUME 90 fl (80-97); MONOCYTES % (AUTO) 6.2 % (3-13); PLATELET COUNT 519 10^3/uL (150-450); RED CELL DISTRIBUTION WIDTH 13.9 % (11.5-14.0); SEGMENTED NEUTROPHILS % (AUTO) 84.5 % (42-78); TOTAL CELLS COUNTED % (AUTO) 100 %; WHITE BLOOD COUNT 13.6 10^3/uL (4.0-10.5)
[2020-07-21 06:58] LABS: ANION GAP 15 (5-19); BLOOD UREA NITROGEN 9 mg/dL (7-20); CALCIUM 8.4 mg/dL (8.4-10.2); CARBON DIOXIDE 18 mmol/L (22-30); CHLORIDE 106 mmol/L (98-107); GLUCOSE 84 mg/dL (75-110); POTASSIUM 4.5 mmol/L (3.6-5.0)
[2020-07-21] MEDS: CEFTRIAXONE 2 GM/D5W RTU 2 GM/50 ML RTUPB IV SCH ×2 (09:05→21:06)
[2020-07-21] MEDS: ENOXAPARIN SODIUM INJ 40 MG/0.4 ML DISP.SYRIN SUBCUT SCH (09:05)
[2020-07-21] MEDS: FAMOTIDINE INJ/PF 20 MG/2 ML SDV IV SCH ×2 (09:05→21:06)
--- NOTE | 2020-07-21 10:19 | PDOC PROGRESS REPORT ---
Subjective Progress Note for:: 07/21/20 Reason For Visit: INTRA ABDOMINAL ABSCESS, LEUKOCYTOSIS Physical Exam Vital Signs: Temp Pulse Resp BP Pulse Ox 98.0 F 70 12 122/80 97 07/21/20 09:39 07/21/20 07:24 07/21/20 07:24 07/21/20 07:24 07/21/20 07:24 Pulse Oximeter Continuous Start: 07/16/20 23:23 Freq: RTQ4 Status: Complete Protocol: Document 07/19/20 10:45 [facility] [place]Rec: 07/19/20 10:45 [facility] [id number] Pulse Oximetry Assessment Equipment Usage Equipment Discontinued Continuous SpO2 Machine # 5 Intake & Output 07/20/20 07/21/20 07/22/20 06:59 06:59 06:59 Intake Total 2650 1740 1000 Output Total 7 15 Balance 2643 1725 1000 Weight 77.2 kg 78 kg General appearance: PRESENT: no acute distress Head exam: PRESENT: normocephalic Eye exam: PRESENT: EOMI Ear exam: PRESENT: normal external ear exam Mouth exam: PRESENT: moist Neck exam: PRESENT: full ROM Respiratory exam: PRESENT: clear to auscultation will Cardiovascular exam: PRESENT: RRR Pulses: PRESENT: normal radial pulses, +2 pedal pulses bilateral Breast: PRESENT: Normal GI/Abdominal exam: PRESENT: soft, other - [address] midline wound clean Rectal exam: PRESENT: deferred Gentrourinary exam: PRESENT: scrotal swelling Extremities exam: PRESENT: full ROM Musculoskeletal exam: PRESENT: full ROM Neurological exam: PRESENT: alert, awake, oriented to person, oriented to place Psychiatric exam: PRESENT: appropriate affect Skin exam: PRESENT: dry Results Laboratory Results: 07/21/20 05:10 07/21/20 05:10 07/21/20 07/21/20 05:10 05:10 WBC 13.6 H RBC 4.10 L Hgb 12.5 L Hct 36.9 L MCV 90 MCH 30.4 MCHC 33.8 RDW 13.9 Plt Count 519 H Seg Neutrophils % 84.5 H Sodium 139.3 Potassium 4.5 Chloride 106 Carbon Dioxide 18 L Anion Gap 15 BUN 9 Creatinine 0.76 Est GFR ( Amer) > 60 Glucose 84 Calcium 8.4 Impressions: Chest CT 07/16/20 00:00 IMPRESSION: Contrast enhanced CT of the chest: No acute or suspicious findings within the chest. Dilated/fluid-filled esophagus with abrupt transition at the GE junction, suspicious for achalasia. Contrast enhanced CT of the abdomen/pelvis: Large, thick-walled mixed fluid/gas collection located about the low low abdomen/pelvis. The periphery of this collection approximates the sigmoid colon as well as the cecum. Differential considerations for this finding include a large abscess, possibly as a result of perforated appendicitis or perforated diverticulitis (although no significant diverticula are identified on this examination). Alternatively, this could represent a necrotic mass such as a GIST. However, the presence of adjacent inflammatory stranding favors an infectious process. Superimposed wall thickening about the adjacent sigmoid colon is most likely reactive. TECHNICAL DOCUMENTATION: Quality ID # [id number]: Final reports with documentation of one or more dose reduction techniques (e.g., Automated exposure control, adjustment of the mA and/or kV according to patient size, use of iterative reconstruction technique) copyright 2011 [employer]- All Rights Reserved Abdomen/Pelvis CT 07/16/20 14:30 IMPRESSION: 1. A large abnormal thick wall appearing fluid collection in the midline to the left and right lower abdomen as described above which contains air-fluid levels and small foci of air. Considerations for this finding includes an abscess, possibility of a necrotic mass, as well as other etiologies. (The results of this examination were discussed with emergency department provider on 07/16/2020 at 15:38 hours). 2. A large dilated structure in the posterior mediastinum extending to the right of the midline. This finding may represent a dilated esophagus correlating with the patient's history of achalasia. 3. Additional findings as above. Assessment & Plan - Time Anticipated Discharge Disposition: Home, Self Care Anticipated Discharge Timeframe: unk - Plan Summary Plan Summary: s/p exploratory laparotomy and ileocecectomy for perforated appy doing better no flatus yet drains with min op wound clean dry will start po clears cont wound packing.
[2020-07-22] MEDS: CLINDAMYCIN 900 MG/D5W RTU 900 MG/50 ML RTUPB IV SCH ×3 (05:40→23:49)
[2020-07-22] MEDS: KETOROLAC TROMETHAMINE INJ/PF 30 MG/1 ML SDV IV PRN ×3 (05:40→20:40)
[2020-07-22] MEDS: NORMAL SALINE 1000 ML 1,000 ML IV PRN (06:53)
[2020-07-22 07:17] LABS: ANION GAP 7 (5-19); BLOOD UREA NITROGEN 5 mg/dL (7-20); CALCIUM 7.8 mg/dL (8.4-10.2); CARBON DIOXIDE 22 mmol/L (22-30); CHLORIDE 106 mmol/L (98-107); GLUCOSE 106 mg/dL (75-110); POTASSIUM 3.8 mmol/L (3.6-5.0)
[2020-07-22 07:36] LABS: HEMATOCRIT 32.4 % (37.9-51.0); HEMOGLOBIN 11.1 g/dL (13.5-17.0); MEAN CORPUSCULAR HEMOGLOBIN 30.8 pg (27.0-33.4); MEAN CORPUSCULAR HGB CONC 34.3 g/dL (32.0-36.0); MEAN CORPUSCULAR VOLUME 90 fl (80-97); PLATELET COUNT 455 10^3/uL (150-450); RED BLOOD COUNT 3.61 10^6/uL (4.35-5.55); RED CELL DISTRIBUTION WIDTH 13.8 % (11.5-14.0); WHITE BLOOD COUNT 11.3 10^3/uL (4.0-10.5)
[2020-07-22 07:41] LABS: ABSOLUTE LYMPHOCYTES# (MANUAL) 1.6 10^3/uL (0.5-4.7); ABSOLUTE MONOCYTES # (MANUAL) 0.6 10^3/uL (0.1-1.4); BAND NEUTROPHILS % (MANUAL) 1 % (3-5); BASOPHILS % (MANUAL) 0 % (0-2); EOSINOPHILS % (MANUAL) 1 % (0-6); LYMPHOCYTES % (MANUAL) 12 % (13-45); MONOCYTES % (MANUAL) 5 % (3-13); SEGMENTED NEUTROPHILS % (MAN) 79 % (42-78); TOTAL CELLS COUNTED 100
[2020-07-22 07:42] LABS: PLATELET COMMENT INCREASED; RBC MORPHOLOGY COMMENT NORMO-CYTIC/CHROMIC
[2020-07-22] MEDS: ENOXAPARIN SODIUM INJ 40 MG/0.4 ML DISP.SYRIN SUBCUT SCH (09:55)
[2020-07-22] MEDS: CEFTRIAXONE 2 GM/D5W RTU 2 GM/50 ML RTUPB IV SCH ×2 (09:56→22:29)
[2020-07-22] MEDS: FAMOTIDINE INJ/PF 20 MG/2 ML SDV IV SCH ×2 (09:56→22:30)
--- NOTE | 2020-07-22 11:29 | PDOC PROGRESS REPORT ---
Subjective Progress Note for:: 07/22/20 Reason For Visit: INTRA ABDOMINAL ABSCESS, LEUKOCYTOSIS Patient feels well, no complaints, tolerating clear liquids, had a bowel movement. No nausea. Voiding without difficulty Physical Exam Vital Signs: Temp Pulse Resp BP Pulse Ox 98.2 F 61 16 119/82 98 07/22/20 07:31 07/22/20 07:31 07/22/20 07:31 07/22/20 07:31 07/22/20 07:31 Pulse Oximeter Continuous Start: 07/16/20 23:23 Freq: RTQ4 Status: Complete Protocol: Document 07/19/20 10:45 [facility] [place] (Rec: 07/19/20 10:45 [facility] [place] [id number]) Pulse Oximetry Assessment Equipment Usage Equipment Discontinued Continuous SpO2 Machine # 5 Intake & Output 07/21/20 07/22/20 07/23/20 06:59 06:59 06:59 Intake Total 1740 5170 Output Total 15 110 Balance 1725 5060 Weight 78 kg 78.2 kg General appearance: PRESENT: no acute distress GI/Abdominal exam: PRESENT: other - Abdomen examined all dressings removed. Left lower pelvic drain removed uneventfully. Open areas to wound clean and beginning to granulate; PDS suture visible. Right paracolic drain left in position. Results Laboratory Results: 07/22/20 06:29 07/22/20 06:29 07/22/20 07/22/20 06:29 06:29 WBC 11.3 H RBC 3.61 L Hgb 11.1 L Hct 32.4 L MCV 90 MCH 30.8 MCHC 34.3 RDW 13.8 Plt Count 455 H Seg Neutrophils % Not Reportable Sodium 134.7 L Potassium 3.8 Chloride 106 Carbon Dioxide 22 Anion Gap 7 BUN 5 L Creatinine 0.64 Est GFR ( Amer) > 60 Glucose 106 Calcium 7.8 L 07/17/20 05:26 Blood Blood Culture - Final NO GROWTH IN 5 DAYS 07/16/20 16:15 Blood Blood Culture - Final NO GROWTH IN 5 DAYS Impressions: Chest CT 07/16/20 00:00 IMPRESSION: Contrast enhanced CT of the chest: No acute or suspicious findings within the chest. Dilated/fluid-filled esophagus with abrupt transition at the GE junction, suspicious for achalasia. Contrast enhanced CT of the abdomen/pelvis: Large, thick-walled mixed fluid/gas collection located about the low low abdomen/pelvis. The periphery of this collection approximates the sigmoid colon as well as the cecum. Differential considerations for this finding include a large abscess, possibly as a result of perforated appendicitis or perforated diverticulitis (although no significant diverticula are identified on this examination). Alternatively, this could represent a necrotic mass such as a GIST. However, the presence of adjacent inflammatory stranding favors an infectious process. Superimposed wall thickening about the adjacent sigmoid colon is most likely reactive. TECHNICAL DOCUMENTATION: Quality ID # 436: Final reports with documentation of one or more dose reduction techniques (e.g., Automated exposure control, adjustment of the mA and/or kV according to patient size, use of iterative reconstruction technique) copyright 2011 [employer]- All Rights Reserved Abdomen/Pelvis CT 07/16/20 14:30 IMPRESSION: 1. A large abnormal thick wall appearing fluid collection in the midline to the left and right lower abdomen as described above which contains air-fluid levels and small foci of air. Considerations for this finding includes an abscess, possibility of a necrotic mass, as well as other etiologies. (The results of this examination were discussed with emergency department provider on 07/16/2020 at 15:38 hours). 2. A large dilated structure in the posterior mediastinum extending to the right of the midline. This finding may represent a dilated esophagus co rrelating with the patient's history of achalasia. 3. Additional findings as above. Assessment & Plan - Diagnosis (1) Acute gangrenous appendicitis with perforation and peritonitis Is this a current diagnosis for this admission?: Yes Plan: Impression: Postoperative day 5 status post exploratory laparotomy limited right colectomy with primary anastomosis, wound left open for post ruptured appendicitis, confirmed on final pathology to be all infectious etiology , no evidence of malignancy. Doing well overall Recommendations: 1. Advance diet to full liquids 2. Shower, increase ambulation 3. Hep-Lock IV fluids 4. Continue intravenous antibiotics for another 24 to 48 hours, then anticipate discharge home likely with remaining drain in, and with consideration for p.o. antibiotics. - Time Time Spent: 30 to 50 Minutes Critical Time spent with patient: Less than 15 minutes Medications reviewed and adjusted accordingly: Yes Anticipated Discharge Disposition: Home, Self Care Anticipated Discharge Timeframe: within 48 hours
[2020-07-23] MEDS: KETOROLAC TROMETHAMINE INJ/PF 30 MG/1 ML SDV IV PRN ×4 (04:04→23:16)
[2020-07-23] MEDS: CLINDAMYCIN 900 MG/D5W RTU 900 MG/50 ML RTUPB IV SCH ×3 (06:26→22:38)
--- NOTE | 2020-07-23 08:34 | PDOC PROGRESS REPORT ---
Subjective Progress Note for:: 07/23/20 Subjective:: feels better, having bm's Reason For Visit: INTRA ABDOMINAL ABSCESS, LEUKOCYTOSIS Physical Exam Vital Signs: Temp Pulse Resp BP Pulse Ox 98.3 F 54 L 17 118/89 H 98 07/22/20 23:45 07/22/20 23:45 07/22/20 23:45 07/22/20 23:45 07/22/20 23:45 Pulse Oximeter Continuous Start: 07/16/20 23:23 Freq: RTQ4 Status: Complete Protocol: Document 07/19/20 10:45 [facility] [place] (Rec: 07/19/20 10:45 [facility] [place] [id number]) Pulse Oximetry Assessment Equipment Usage Equipment Discontinued Continuous SpO2 Machine # 5 Intake & Output 07/22/20 07/23/20 07/24/20 06:59 06:59 06:59 Intake Total 5170 975 50 Output Total 110 30 Balance 5060 945 50 Weight 78.2 kg 78.2 kg General appearance: PRESENT: no acute distress Head exam: PRESENT: normocephalic Eye exam: PRESENT: EOMI Ear exam: PRESENT: other Mouth exam: PRESENT: moist Neck exam: PRESENT: full ROM Respiratory exam: PRESENT: clear to auscultation will Cardiovascular exam: PRESENT: RRR Pulses: PRESENT: normal radial pulses, normal femoral pulses, normal dorsalis pedis pul Vascular exam: PRESENT: normal capillary refill Breast: PRESENT: Normal GI/Abdominal exam: PRESENT: soft Rectal exam: PRESENT: deferred Extremities exam: PRESENT: full ROM Musculoskeletal exam: PRESENT: full ROM Neurological exam: PRESENT: alert, awake, oriented to person, oriented to place Skin exam: PRESENT: dry Results Laboratory Results: 07/22/20 06:29 07/22/20 06:29 07/17/20 05:26 Blood Blood Culture - Final NO GROWTH IN 5 DAYS 07/16/20 16:15 Blood Blood Culture - Final NO GROWTH IN 5 DAYS Impressions: Chest CT 07/16/20 00:00 IMPRESSION: Contrast enhanced CT of the chest: No acute or suspicious findings within the chest. Dilated/fluid-filled esophagus with abrupt transition at the GE junction, suspicious for achalasia. Contrast enhanced CT of the abdomen/pelvis: Large, thick-walled mixed fluid/gas collection located about the low low abdomen/pelvis. The periphery of this collection approximates the sigmoid colon as well as the cecum. Differential considerations for this finding include a large abscess, possibly as a result of perforated appendicitis or perforated diverticulitis (although no significant diverticula are identified on this examination). Alternatively, this could represent a necrotic mass such as a GIST. However, the presence of adjacent inflammatory stranding favors an infectious process. Superimposed wall thickening about the adjacent sigmoid colon is most likely reactive. TECHNICAL DOCUMENTATION: Quality ID # 436: Final reports with documentation of one or more dose reduction techniques (e.g., Automated exposure control, adjustment of the mA and/or kV according to patient size, use of iterative reconstruction technique) copyright 2011 [employer]- All Rights Reserved Abdomen/Pelvis CT 07/16/20 14:30 IMPRESSION: 1. A large abnormal thick wall appearing fluid collection in the midline to the left and right lower abdomen as described above which contains air-fluid levels and small foci of air. Considerations for this finding includes an abscess, possibility of a necrotic mass, as well as other etiologies. (The results of this examination were discussed with emergency department provider on 07/16/2020 at 15:38 hours). 2. A large dilated structure in the posterior mediastinum extending to the right of the midline. This finding may represent a dilated esophagus correlating with the patient's history of achalasia. 3. Additional findings as above. Assessment & Plan - Time Anticipated Discharge Disposition: Home, Self Care Anticipated Discharge Timeframe: within 24 hours - Plan Summary Plan Summary: doing well allan full lilquids now with diarrhea will advance to soft diet\ prob home in am.
[2020-07-23] MEDS ORDERED: NORMAL SALINE 1000 ML 1,000 ML IV PRN (08:35)
[2020-07-23] MEDS: ENOXAPARIN SODIUM INJ 40 MG/0.4 ML DISP.SYRIN SUBCUT SCH (10:16)
[2020-07-23] MEDS: FAMOTIDINE INJ/PF 20 MG/2 ML SDV IV SCH ×2 (10:16→22:37)
[2020-07-23] MEDS: CEFTRIAXONE 2 GM/D5W RTU 2 GM/50 ML RTUPB IV SCH ×2 (10:16→22:37)
[2020-07-24] MEDS: KETOROLAC TROMETHAMINE INJ/PF 30 MG/1 ML SDV IV PRN (05:25)
[2020-07-24] MEDS: ENOXAPARIN SODIUM INJ 40 MG/0.4 ML DISP.SYRIN SUBCUT SCH (09:30)
--- NOTE | 2020-07-24 09:36 | PDOC DISCHARGE SUMMARY ---
General - Admit/Disc Date/PCP Admission Date/Primary Care Provider: 07/16/20 23:41 Discharge Date: 07/24/20 - Discharge Diagnosis Final Diagnosis: Perforated appendicitis - Assessment Summary: 50-year-old male admitted to the hospital with perforated appendicitis. The patient was taken to surgery. The inflammatory response was significant enough that it was involving the cecum. Ileocecectomy was required. The patient underwent open ileocecectomy with primary anastomosis. Since that time, the patient has been improving steadily. He has completed 7 days of antibiotics. H tahmina is now ambulating, tolerating a diet, stooling, he is afebrile, and it is felt that he has reached maximal hospital benefit. At this time he is medically fit for discharge. - Additional Information Discharge Diet: As Tolerated Discharge Activity: No Lifting Over 10 Pounds, No Lifting/Push/Pulling Prescriptions: Hydrocodone/Acetaminophen [[place] 10-325 mg Tablet] 1 tab PO Q6HP PRN #28 tablet PRN Reason: For Pain Home Medications: Hydrocodone/Acetaminophen [[place] 10-325 mg Tablet] 1 tab PO Q6HP PRN #28 tablet 07/24/20 Additional Information: d/c home. Diet: as tolerated. Activity: No lifting greater than 10 pounds x 6 weeks after surgery. Remove dressing and packing tomorrow. Wash with soap and water. Okay to shower. Place dry dressing over top of the incision. Keep wound covered and dry. Change bandage once per day. [place] 10/325 mg p.o. every 6 hours as needed for pain. Empty DONNA drain and record output daily. History of Present Illiness History of Present Illness: MARGARITA CASTANO is a 50 year old male Physical Exam Vital Signs: Temp Pulse Resp BP Pulse Ox 98.2 F 62 18 124/87 H 100 07/24/20 07:55 07/23/20 20:29 07/23/20 20:29 07/23/20 20:29 07/23/20 20:29 Pulse Oximeter Continuous Start: 07/16/20 23:23 Freq: RTQ4 Status: Complete Protocol: Document 07/19/20 10:45 [facility] [place] (Rec: 07/19/20 10:45 [facility] [place] [id number]) Pulse Oximetry Assessment Equipment Usage Equipment Discontinued Continuous SpO2 Machine # 5 Intake & Output 09/07/24/20 07/25/20 06:59 06:59 06:59 Intake Total 975 1850 Output Total 30 170 Balance 945 1680 Weight 78.2 kg 79 kg Results Laboratory Results: WBC 11.3 10^3/uL (4.0-10.5) H 07/22/20 06:29 RBC 3.61 10^6/uL (4.35-5.55) L 07/22/20 06:29 Hgb 11.1 g/dL (13.5-17.0) L 07/22/20 06:29 Hct 32.4 % (37.9-51.0) L 07/22/20 06:29 MCV 90 fl (80-97) 07/22/20 06:29 MCH 30.8 pg (27.0-33.4) 07/22/20 06:29 MCHC 34.3 g/dL (32.0-36.0) 07/22/20 06:29 RDW 13.8 % (11.5-14.0) 07/22/20 06:29 Plt Count 455 10^3/uL (150-450) H 07/22/20 06:29 Lymph % (Auto) Not Reportable 07/22/20 06:29 [place] % (Auto) Not Reportable 07/22/20 06:29 Eos % (Auto) Not Reportable 07/22/20 06:29 Baso % (Auto) Not Reportable 07/22/20 06:29 Absolute Neuts (auto) Not Reportable 07/22/20 06:29 Absolute Lymphs (auto) Not Reportable 07/22/20 06:29 Absolute Monos (auto) Not Reportable 07/22/20 06:29 Absolute Eos (auto) Not Reportable 07/22/20 06:29 Absolute Basos (auto) Not Reportable 07/22/20 06:29 Total Counted 100 07/22/20 06:29 Seg Neutrophils % Not Reportable 07/22/20 06:29 Seg Neuts % (Manual) 79 % (42-78) H 07/22/20 06:29 Band Neutrophils % 1 % (3-5) L 07/22/20 06:29 Lymphocytes % (Manual) 12 % (13-45) L 07/22/20 06:29 Atypical Lymphs % 2 % (0) 07/22/20 06:29 Monocytes % (Manual) 5 % (3-13) 07/22/20 06:29 Eosinophils % (Manual) 1 % (0-6) 07/22/20 06:29 Basophils % (Manual) 0 % (0-2) 07/22/20 06:29 Metamyelocytes % 1 % (0-1) 07/16/20 13:00 Abs Neuts (Manual) 9.0 10^3/uL (1.7-8.2) H 07/22/20 06:29 Abs Lymphs (Manual) 1.6 10^3/uL (0.5-4.7) 07/22/20 06:29 Abs Monocytes (Manual) 0.6 10^3/uL (0.1-1.4) 07/22/20 06:29 Absolute Eos (Manual) 0.1 10^3/uL (0.0-0.6) 07/22/20 06:29 Abs Basophils (Manual) 0.0 10^3/uL (0.0-0.2) 07/22/20 06:29 Toxic Vacuolation PRESENT 07/16/20 13:00 Platelet Comment INCREASED 07/22/20 06:29 RBC Morph Comment NORMO-CYTIC/CHROMIC 07/22/20 06:29 Sodium 134.7 mmol/L (137-145) L 07/22/20 06:29 Potassium 3.8 mmol/L (3.6-5.0) 07/22/20 06:29 Chloride 106 mmol/L (98-107) 07/22/20 06:29 Carbon Dioxide 22 mmol/L (22-30) 07/22/20 06:29 Anion Gap 7 (5-19) 07/22/20 06:29 BUN 5 mg/dL (7-20) L 07/22/20 06:29 Creatinine 0.64 mg/dL (0.52-1.25) 07/22/20 06:29 Est GFR ( Amer) > 60 (>60) 07/22/20 06:29 Est GFR (MDRD) Non-Af > 60 (>60) 07/22/20 06:29 Glucose 106 mg/dL (75-110) 07/22/20 06:29 Calcium 7.8 mg/dL (8.4-10.2) L 07/22/20 06:29 Total Bilirubin 0.9 mg/dL (0.2-1.3) 07/16/20 13:00 Direct Bilirubin 0.5 mg/dL (0.0-0.4) H 07/16/20 13:00 Neonat Total Bilirubin Not Reportable 07/16/20 13:00 Neonat Direct Bilirubin Not Reportable 07/16/20 13:00 Neonat Indirect Bili Not Reportable 07/16/20 13:00 AST 28 U/L (17-59) 07/16/20 13:00 ALT 37 U/L (<50) 07/16/20 13:00 Alkaline Phosphatase 123 U/L (38-126) 07/16/20 13:00 Total Protein 7.5 g/dL (6.3-8.2) 07/16/20 13:00 Albumin 4.2 g/dL (3.5-5.0) 07/16/20 13:00 Lipase 21.9 U/L (23-300) L 07/16/20 13:00 Urine Color YELLOW 07/16/20 13:00 Urine Appearance CLEAR 07/16/20 13:00 Urine pH 6.0 (5.0-9.0) 07/16/20 13:00 Ur Specific [place] 1.014 07/16/20 13:00 Urine Protein 30 mg/dL (NEGATIVE) H 07/16/20 13:00 Urine Glucose (UA) NEGATIVE mg/dL (NEGATIVE) 07/16/20 13:00 Urine Ketones TRACE mg/dL (NEGATIVE) H 07/16/20 13:00 Urine Blood NEGATIVE (NEGATIVE) 07/16/20 13:00 Urine Nitrite NEGATIVE (NEGATIVE) 07/16/20 13:00 Urine Bilirubin NEGATIVE (NEGATIVE) 07/16/20 13:00 Urine Urobilinogen NEGATIVE mg/dL (<2.0) 07/16/20 13:00 Ur Leukocyte Esterase NEGATIVE (NEGATIVE) 07/16/20 13:00 Urine WBC (Auto) 2 /HPF 07/16/20 13:00 Urine RBC (Auto) 1 /HPF 07/16/20 13:00 Urine Ascorbic Acid NEGATIVE (NEGATIVE) 07/16/20 13:00 SARS-CoV-2 (PCR) NEGATIVE (NEGATIVE) 07/16/20 22:26 Impressions: Abdomen/Pelvis CT 07/16/20 00:00 IMPRESSION: Contrast enhanced CT of the chest: No acute or suspicious findings within the chest. Dilated/fluid-filled esophagus with abrupt transition at the GE junction, suspicious for achalasia. Contrast enhanced CT of the abdomen/pelvis: Large, thick-walled mixed fluid/gas collection located about the low low abdomen/pelvis. The periphery of this collection approximates the sigmoid colon as well as the cecum. Differential considerations for this finding include a large abscess, possibly as a result of perforated appendicitis or perforated diverticulitis (although no significant diverticula are identified on this examination). Alternatively, this could represent a necrotic mass such as a GIST. However, the presence of adjacent inflammatory stranding favors an infectious process. Superimposed wall thickening about the adjacent sigmoid colon is most likely reactive. TECHNICAL DOCUMENTATION: Quality ID # 436: Final reports with documentation of one or more dose reduction techniques (e.g., Automated exposure control, adjustment of the mA and/or kV according to patient size, use of iterative reconstruction technique) copyright 2011 [employer]- All Rights Reserved Chest CT 07/16/20 00:00 IMPRESSION: Contrast enhanced CT of the chest: No acute or suspicious findings within the chest. Dilated/fluid-filled esophagus with abrupt transition at the GE junction, suspicious for achalasia. Contrast enhanced CT of the abdomen/pelvis: Large, thick-walled mixed fluid/gas collection located about the low low abdomen/pelvis. The periphery of this collection approximates the sigmoid colon as well as the cecum. Differential considerations for this finding include a large abscess, possibly as a result of perforated appendicitis or perforated diverticulitis (although no significant diverticula are identified on this examination). Alternatively, this could represent a necrotic mass such as a GIST. However, the presence of adjacent inflammatory stranding favors an infectious process. Superimposed wall thickening about the adjacent sigmoid colon is most likely reactive. TECHNICAL DOCUMENTATION: Quality ID # [id number]: Final reports with documentation of one or more dose reduction techniques (e.g., Automated exposure control, adjustment of the mA and/or kV according to patient size, use of iterative reconstruction technique) copyright 2011 [employer]- All Rights Reserved Abdomen/Pelvis CT 07/16/20 14:30 IMPRESSION: 1. A large abnormal thick wall appearing fluid collection in the midline to the left and right lower abdomen as described above which contains air-fluid levels and small foci of air. Considerations for this finding includes an abscess, possibility of a necrotic mass, as well as other etiologies. (The results of this examination were discussed with emergency department provider on 07/16/2020 at 15:38 hours). 2. A large dilated structure in the posterior mediastinum extending to the right of the midline. This finding may represent a dilated esophagus correlating with the patient's history of achalasia. 3. Additional findings as above.
[2020-07-24] MEDS: FAMOTIDINE INJ/PF 20 MG/2 ML SDV IV SCH (09:51)
[2020-07-24] MEDS: CEFTRIAXONE 2 GM/D5W RTU 2 GM/50 ML RTUPB IV SCH (09:51)
[2020-07-24 10:01] VITALS: BP 112/59
== END 2020-07-24 11:25 | disposition home or self-care (01) | DRG 331 ==
LOC: ER 11:22 → EH 23:41 → 4W 07-17 12:31 → 4S 07-19 22:23
PROVIDERS: ATTEND Surgery
PROC: 0DBH0ZZ Excision of Cecum, Open Approach (ICD-10-PCS; principal; 2020-07-17 07:15)
DX: K35.32 Acute appendicitis with perforation, localized peritonitis, and gangrene, without abscess (principal); Z11.59 Encounter for screening for other viral diseases; Z98.1 Arthrodesis status
CPT/HCPCS: 36415; 71260; 74177; 80048; 80053; 81001; 83690; 840; 85025; 87040; 87070; 87075; 87077; 87186; 87205; 87635; 88307; 94762; 94799; 96361; 96365; 96375; 96376; 99140; 99285; C1758; C9803; J0131; J0330; J0696; J1100; J1650; J1885; J2250; J2270; J2370; J2405; J2543; J2550; J2704; J2710; J3010; J3490; J7030; S0028